=== PATIENT | male | born 1970 | race Caucasian/White ===

== ENCOUNTER 2019-01-16 16:06 | Emergency (ER) | payer MEDICAID ==
[~2019-01-16] VITALS: Ht 175.3 cm; Wt 86.6 kg
[2019-01-16 16:14] VITALS: BP 125/82
--- NOTE | 2019-01-16 16:40 | NUR ---
48 YO WITH CHIEF C/O FOREIGN BODY IN LEFT EYE X EARLIER TODAY, POSSIBILE METAL, + REDNESS. PATIENT DENIES ANY PMH. VSS. SIDERAIL UP X1 FOR SAFETY. PENDING MD EVALUATION.
[2019-01-16] MEDS ORDERED: TETRACAINE HCL/PF 0.5% OPTH 4 ML BTL OP ONE (17:10)
[2019-01-16] MEDS ORDERED: FLUORESCEIN OPTH STRIP 0.6 MG OP ONE (17:10)
[2019-01-16] MEDS ORDERED: TETRACAINE HCL/PF 0.5% OPTH 4 ML BTL ONE (17:20)
[2019-01-16] MEDS ORDERED: FLUORESCEIN OPTH STRIP 0.6 MG ONE (17:21)
--- NOTE | 2019-01-16 17:25 | NUR ---
PERLA MOSER AT BEDSIDE FOR FOREIGN BODY REMOVAL (LEFT EYE).
[2019-01-16] MEDS ORDERED: ERYTHROMYCIN 0.5% OPTH OINT 1 GM TUBE OP SCH (17:40)
[2019-01-16 18:23] VITALS: BP 111/78
--- NOTE | 2019-01-16 18:23 | NUR ---
Patient discharged with v/s stable. Written and verbal after care instructions given and explained. Patient alert, oriented and verbalized understanding of instructions. Ambulatory with steady gait. All questions addressed prior to discharge. ID band removed. Patient advised to follow up with PMD. Rx of Motrin and Erythromycin ophthalmic ointment given. Patient educated on indication of medication including possible reaction and side effects. Opportunity to ask questions provided and answered.
== END 2019-01-16 18:23 | disposition home or self-care (01) ==
LOC: MED 16:06
DX: T15.02XA Foreign body in cornea, left eye, initial encounter (principal); X58.XXXA Exposure to other specified factors, initial encounter; Y93.89 Activity, other specified; Y92.89 Other specified places as the place of occurrence of the external cause; Y99.8 Other external cause status
CPT/HCPCS: 65205; 99284

== ENCOUNTER 2019-01-17 10:10 | Emergency (ER) | payer MEDICAID ==
[~2019-01-17] VITALS: Ht 177.8 cm; Wt 87.1 kg
[2019-01-17 10:29] VITALS: BP 133/83
--- NOTE | 2019-01-17 10:34 | NUR ---
pt amb to er bed 3
[2019-01-17] MEDS ORDERED: TETRACAINE HCL/PF 0.5% OPTH 4 ML BTL OP ONE (10:40)
[2019-01-17] MEDS ORDERED: FLUORESCEIN OPTH STRIP 0.6 MG OP ONE (10:40)
--- NOTE | 2019-01-17 10:40 | NUR ---
C/O LT EYE PAIN X1 DAY. PT REPORTS CONSTANT SHARP PAIN IN LT EYE AT 10/10. PT WAS SEEN HERE YESTERDAY, HAD SMALL PIECE OF METAL REMOVED FROM EYE, BUT PT THINKS THERE IS MORE IN HIS EYE. . DENIES N/V/D; SKIN IS PINK/WARM/DRY; AAOX4 WITH EVEN AND STEADY GAIT; LUNGS CLEAR BL; HR EVEN AND REGULAR; PT DENIES ANY FEVER, CP, SOB, OR COUGH AT THIS TIME; PATIENT STATES PAIN OF 10/10 AT THIS TIME; VSS; PATIENT POSITIONED FOR COMFORT; HOB ELEVATED; BEDRAILS UP X2; BED DOWN. ER MD MADE AWARE OF PT STATUS.
[2019-01-17] MEDS ORDERED: ERYTHROMYCIN 0.5% OPTH OINT 1 GM TUBE OP ONE ×2 (11:00→11:45)
[2019-01-17] MEDS ORDERED: ERYTHROMYCIN 0.5% OPTH OINT 1 GM TUBE OP SCH (11:48)
[2019-01-17 12:01] VITALS: BP 133/83
--- NOTE | 2019-01-17 12:01 | NUR ---
Patient discharged with v/s stable. Written and verbal after care instructions given and explained. Patient verbalized understanding. Ambulatory with steady gait. All questions addressed prior to discharge. Advised to follow up with PMD.
== END 2019-01-17 12:01 | disposition home or self-care (01) ==
LOC: MED 10:10
DX: S05.02XA Injury of conjunctiva and corneal abrasion without foreign body, left eye, initial encounter (principal); X58.XXXA Exposure to other specified factors, initial encounter; Y93.89 Activity, other specified; Y92.89 Other specified places as the place of occurrence of the external cause; Y99.8 Other external cause status
CPT/HCPCS: 99284